=== PATIENT | male | born 1970 | race Caucasian/White ===

== ENCOUNTER 2017-07-13 13:22 | Emergency (ER) | payer OTHER ==
[2017-07-13 13:31] VITALS: BP 156/95
== END 2017-07-13 15:55 | disposition left against medical advice (07) ==
LOC: ED 13:22
DX: N20.0 Calculus of kidney (principal); R31.9 Hematuria, unspecified; R11.0 Nausea; Z53.21 Procedure and treatment not carried out due to patient leaving prior to being seen by health care provider